=== PATIENT | female | born 1990 | race Caucasian/White ===

== ENCOUNTER 2018-12-27 08:30 | Observation (INO) | payer OTHER ==
[2018-12-27 09:04] LABS: ADD MAN DIFF? NO
[2018-12-27 09:06] LABS: BASOPHILS % 0.2 % (0.0-2.0); EOSINOPHILS # 0.1 10^3/ul (0.0-0.5); EOSINOPHILS % 0.9 % (0.0-7.0); HEMOGLOBIN 14.2 g/dl (12.0-16.0); LYMPHOCYTES # 1.3 10^3/ul (0.8-2.9); LYMPHOCYTES % 12.5 % (15.0-51.0); MEAN CORPUSCULAR HEMOGLOBIN 31.6 pg (29.0-33.0); MEAN CORPUSCULAR HGB CONC 33.8 g/dl (32.0-37.0); MEAN CORPUSCULAR VOLUME 93.3 fl (82.0-101.0); MEAN PLATELET VOLUME 8.9 fl (7.4-10.4); MONOCYTE # 0.8 10^3/ul (0.3-0.9); MONOCYTES % 7.6 % (0.0-11.0); NEUTROPHIL # 8.2 10^3/ul (1.6-7.5); NEUTROPHILS % 78.3 % (39.0-77.0); PLATELET COUNT 293 10^3/UL (140-415)
[2018-12-27 09:06] LABS: WHITE BLOOD COUNT 10.4 10^3/ul (4.8-10.8)
[2018-12-27 09:23] LABS: ANION GAP 10 (5-13); BLOOD UREA NITROGEN 9 mg/dl (7-20); CALCIUM 9.2 mg/dl (8.4-10.2); CARBON DIOXIDE 26 mmol/L (21-31); CHLORIDE 103 mmol/L (97-110); CREATININE 0.67 mg/dl (0.44-1.00); Estimated GFR > 60 mL/min (>60); GLUCOSE 89 mg/dl (70-220); POTASSIUM 4.1 mmol/L (3.5-5.1); SODIUM 139 mmol/L (135-144)
[2018-12-27 09:25] LABS: INR 0.97
[2018-12-27 09:35] LABS: B-TYPE NATRIURETIC PEPTIDE 65 PG/ML (0-125); TROPONIN-I < 0.012 ng/ml (0.000-0.120)
[2018-12-27] MEDS: ASPIRIN 81 MG TAB PO (09:36)
[2018-12-27] MEDS ORDERED: HYDROmorphONE 2 MG/ML SYG IV (10:00)
[2018-12-27] MEDS ORDERED: ONDANSETRON 4 MG INJ IV ×2 (10:00→12:30)
[2018-12-27] MEDS ORDERED: NACL 0.9% 3 ML SYG IV (12:30)
[2018-12-27] MEDS ORDERED: ACETAMINOPHEN 325 MG TAB PO (12:30)
[2018-12-27 15:17] LABS: CREATINE KINASE 61 IU/L (23-200)
[2018-12-27 15:31] LABS: CK INDEX 0.4; CK-MB 0.26 ng/ml (0.0-2.4); TROPONIN-I < 0.012 ng/ml (0.000-0.120)
[2018-12-27 20:59] LABS: CREATINE KINASE 58 IU/L (23-200)
[2018-12-27] MEDS: METOPROLOL 25 MG TAB PO (21:09)
[2018-12-27 21:11] LABS: CK INDEX 0.4; CK-MB < 0.22 ng/ml (0.0-2.4); TROPONIN-I < 0.012 ng/ml (0.000-0.120)
[2018-12-27] MEDS: LORAZEPAM 2 MG INJ IV (21:27)
[2018-12-28 05:54] LABS: ADD MAN DIFF? NO
[2018-12-28 05:59] LABS: WHITE BLOOD COUNT 4.1 10^3/ul (4.8-10.8)
[2018-12-28 05:59] LABS: BASOPHILS % 0.7 % (0.0-2.0); EOSINOPHILS # 0.1 10^3/ul (0.0-0.5); EOSINOPHILS % 2.2 % (0.0-7.0); HEMATOCRIT 38.5 % (37.0-47.0); LYMPHOCYTES # 1.7 10^3/ul (0.8-2.9); LYMPHOCYTES % 40.8 % (15.0-51.0); MEAN CORPUSCULAR HEMOGLOBIN 31.1 pg (29.0-33.0); MEAN CORPUSCULAR HGB CONC 33.8 g/dl (32.0-37.0); MEAN CORPUSCULAR VOLUME 92.1 fl (82.0-101.0); MONOCYTE # 0.5 10^3/ul (0.3-0.9); MONOCYTES % 12.6 % (0.0-11.0); NEUTROPHIL # 1.8 10^3/ul (1.6-7.5); NEUTROPHILS % 43.5 % (39.0-77.0); PLATELET COUNT 261 10^3/UL (140-415); RED BLOOD COUNT 4.18 10^6/ul (4.20-5.40); RED CELL DISTRIBUTION WIDTH 12.1 % (11.5-14.5)
[2018-12-28 07:03] LABS: ALANINE AMINOTRANSFERASE 23 IU/L (13-69); ALBUMIN 3.8 g/dl (3.3-4.9); ALBUMIN/GLOBULIN RATIO 1.52; ALKALINE PHOSPHATASE 41 IU/L (42-121); ANION GAP 6 (5-13); ASPARTATE AMINO TRANSFERASE 22 IU/L (15-46); BLOOD UREA NITROGEN 9 mg/dl (7-20); CARBON DIOXIDE 26 mmol/L (21-31); CHLORIDE 105 mmol/L (97-110); CHOL/HDL RATIO 3.4 RATIO; CHOLESTEROL 149 mg/dl (100-200); CREATININE 0.67 mg/dl (0.44-1.00); Estimated GFR > 60 mL/min (>60); GLUCOSE 90 mg/dl (70-220); HDL CHOLESTEROL 43 mg/dl (33-83); LDL CHOLESTEROL,CALCULATED 91 mg/dl; PHOSPHORUS 3.9 mg/dl (2.5-4.9); POTASSIUM 3.8 mmol/L (3.5-5.1); SODIUM 137 mmol/L (135-144); THYROID STIMULATING HORMONE 0.322 MIU/L (0.465-4.680); TOTAL PROTEIN 6.3 g/dl (6.1-8.1); TRIGLYCERIDES 76 mg/dl (0-149)
[2018-12-28 08:28] LABS: HEMOGLOBIN A1C 5.2 % (0-5.9)
[2018-12-28] MEDS: METOPROLOL 25 MG TAB PO ×2 (08:42→20:58)
[2018-12-28 13:15] LABS: FREE T4 (FREE THYROXINE) 1.43 ng/dl (0.79-2.35)
[2018-12-28] MEDS: POTASSIUM CHLORIDE (SR) 20 MEQ TAB PO (13:16)
[2018-12-28 13:53] LABS: AMPHETAMINE/METHAMPHETAMINE Negative (NEGATIVE); BARBITURATES Negative (NEGATIVE); BENZODIAZEPINES Negative (NEGATIVE); CANNABINOIDS Positive (NEGATIVE); COCAINE Negative (NEGATIVE); OPIATES Negative (NEGATIVE)
[2018-12-28] MEDS: LORAZEPAM 1 MG TAB PO (23:49)
[2018-12-29] MEDS: METOPROLOL 25 MG TAB PO (08:59)
[2018-12-29] MEDS: LORAZEPAM 1 MG TAB PO ×2 (11:38→16:43)
[2018-12-30] MEDS: LORAZEPAM 1 MG TAB PO (08:14)
[2018-12-30] MEDS: ATENOLOL 25 MG TAB PO (08:15)
[2018-12-30] MEDS ORDERED: clonAZEPAM 0.5 MG TAB NGT (10:00)
== END 2018-12-30 11:15 | disposition home or self-care (01) ==
LOC: E/R 08:30 → 6WM 09:49
DX: I47.1 Supraventricular tachycardia (principal); F41.1 Generalized anxiety disorder; I42.9 Cardiomyopathy, unspecified; I49.3 Ventricular premature depolarization; Z86.74 Personal history of sudden cardiac arrest; Z95.810 Presence of automatic (implantable) cardiac defibrillator
CPT/HCPCS: 36415; 71045; 80048; 80053; 80061; 80307; 81025; 82550; 82553; 83036; 83735; 83880; 84100; 84439; 84443; 84484; 85025; 85610; 93005; 93306; 99285-25; G0378